=== PATIENT | male | born 1955 | race Caucasian/White ===

== ENCOUNTER 2017-07-11 11:30 | Emergency (ER) | payer SELFPAY ==
[2017-07-11] MEDS ORDERED: Labetalol IV* 5 MG/ML 20 ML VIAL IV PUSH ONE (12:44)
[2017-07-11 13:32] LABS: ABS Basophils 0.1 10^3/ul (0-0.2); ABS Eosinophils 0.1 10^3/ul (0-0.6); ABS Lymphocytes 1.1 10^3/ul (1.0-4.8); ABS Monocytes 0.8 10^3/ul (0-0.8); ABS Neutrophils 9.8 10^3/ul (1.5-7.7); ABS Nucleated RBC 0 10^3/ul; Eosinophil % 0.5 % (0-6); Hematocrit 43 % (42-52); Lymphocyte % 9.6 % (25-47); Mean Corpuscular HGB Conc 35 g/dl (31-36); Mean Corpuscular Hemoglobin 31 pg (27-31); Mean Corpuscular Volume 89 fL (80-94); Mean Platelet Volume 8 um3 (7.4-10.4); Nucleated Red Blood Cells % 0.1; Platelet Count 214 10^3/ul (150-450); Red Blood Count 4.85 10^6/ul (4.0-5.4); Red Cell Distribution Width 13 % (10.5-15)
--- NOTE | 2017-07-11 13:33 | RAD ---
Indication: Hypertension. 2 views of the chest including dual energy PA views demonstrate no mediastinal shift. Heart is normal size and configuration. Lung beauchamp are clear. IMPRESSION: No active cardiopulmonary disease is noted.
[2017-07-11 15:02] VITALS: BP 141/83
--- NOTE | 2017-07-13 07:47 | ED ---
Moncho [place] Angela, scribed for Bowen Casas MD on 07/11/17 at 1246 . Hypertension - HPI Summary HPI Summary: This pt is a 61 y/o male [facility] [place] [facility] [place]/o elevated blood pressure for the past 2 weeks. He reports his blood pressure in the last few weeks has been in the 200's/100's. Pt notes prior to onset of hypertension, he became upset and since then he has not been able to get his blood pressure down. He reports pressure on head, chest discomfort, and cold sweats. Denies SOB, nausea, vomiting. PMHx: diabetes, CVA (in 2000). Pt has had left leg swelling chronic since his stroke. Denies LLE pain. Pt reports he has problems with his kidneys "leaking" and is followed up Dr. Madison, veterinary practice manager in [place]. - History of Current Complaint Chief Complaint: EDHypertension Stated Complaint: HIGH BP Time Seen by Provider: 07/11/17 12:36 Hx Obtained From: Patient Onset/Duration: Started Weeks Ago Timing: Lasting Weeks Reported Blood Pressure Prior To Arrival: 200's/100's Aggravating Factor(s): Other: - stress Alleviating Factor(s): Nothing Associated Signs & Symptoms: Chest Pain - chest discomfort, Headaches - pressure on head, Other: - cold sweats - Allergies/Home Medications Allergies/Adverse Reactions: Allergies Allergy/AdvReac Type Severity Reaction Status Date / Time No Known Allergies Allergy Verified 07/11/17 13:00 PMH/Surg Hx/FS Hx/Imm Hx Endocrine/Hematology History: Reports: Hx Diabetes Neurological History: Reports: Hx CVA Infectious Disease History: No Infectious Disease History: Denies: Traveled Outside the [place] in Last 30 Days - Family History Known Family History: Negative: Cardiac Disease - Social History Alcohol Use: None Substance Use Type: Reports: None Smoking Status (MU): Never Smoked Tobacco Review of Systems Positive: Skin Diaphoresis - cold sweats. Negative: Fever, Chills Cardiovascular: Other - chest discomfort Negative: Shortness Of Breath Negative: Vomiting, Nausea Neurological: Other - pressure on head All Other Systems Reviewed And Are Negative: Yes Physical Exam - Summary Physical Exam Summary: VITAL SIGNS: Reviewed. GENERAL: Patient is a well-developed and nourished male who is lying comfortable in the stretcher. Patient is not in any acute respiratory distress. HEAD AND FACE: No signs of trauma. No ecchymosis, hematomas or skull depressions. No sinus tenderness. EYES: PERRLA, EOMI x 2, No injected conjunctiva, no nystagmus. EARS: Hearing grossly intact. Ear canals and tympanic membranes are within normal limits. MOUTH: Oropharynx within normal limits. NECK: Supple, trachea is midline, no adenopathy, no JVD, no carotid bruit, no c- spine tenderness, neck with full ROM. CHEST: Symmetric, no tenderness at palpation LUNGS: Clear to auscultation bilaterally. No wheezing or crackles. CVS: Regular rate and rhythm, S1 and S2 present, no murmurs or gallops appreciated. ABDOMEN: Soft, non-tender. No signs of distention. No rebound no guarding, and no masses palpated. Bowel sounds are normal. EXTREMITIES: FROM in all major joints, no edema, no cyanosis or clubbing. NEURO: Alert and oriented x 3. No acute neurological deficits. Speech is normal and follows commands. SKIN: Dry and warm Triage Information Reviewed: Yes Vital Signs On Initial Exam: Initial Vitals Temp Pulse Resp BP Pulse Ox 96.8 F 97 18 206/105 100 07/11/17 11:32 07/11/17 11:32 07/11/17 11:32 07/11/17 11:32 07/11/17 11:32 Vital Signs Reviewed: Yes Diagnostics - Vital Signs Vital Signs Temp Pulse Resp BP Pulse Ox 07/11/17 11:32 96.8 F 97 18 206/105 100 - Laboratory Lab Results: Lab Results 07/11/17 07/11/17 07/11/17 Range/Units 13:20 13:20 13:20 WBC 12.0 H (3.5-10.8) 10^3/ul RBC 4.85 (4.0-5.4) 10^6/ul Hgb 15.0 (14.0-18.0) g/dl Hct 43 (42-52) % MCV 89 (80-94) fL MCH 31 (27-31) pg MCHC 35 (31-36) g/dl RDW 13 (10.5-15) % Plt Count 214 (150-450) 10^3/ul MPV 8 (7.4-10.4) um3 Neut % (Auto) 81.9 (38-83) % Lymph % (Auto) 9.6 L (25-47) % Roosevelt % (Auto) 7.0 (0-7) % Eos % (Auto) 0.5 (0-6) % Baso % (Auto) 1.0 (0-2) % Absolute Neuts (auto) 9.8 H (1.5-7.7) 10^3/ul Absolute Lymphs (auto) 1.1 (1.0-4.8) 10^3/ul Absolute Monos (auto) 0.8 (0-0.8) 10^3/ul Absolute Eos (auto) 0.1 (0-0.6) 10^3/ul Absolute Basos (auto) 0.1 (0-0.2) 10^3/ul Absolute Nucleated RBC 0 10^3/ul Nucleated RBC % 0.1 Sodium 134 (133-145) mmol/L Potassium 4.3 (3.5-5.0) mmol/L Chloride 104 (101-111) mmol/L Carbon Dioxide 22 (22-32) mmol/L Anion Gap 8 (2-11) mmol/L BUN 24 (6-24) mg/dL Creatinine 1.21 H (0.67-1.17) mg/dL Est GFR ( Amer) 78.4 (>60) Est GFR (Non-Af Amer) 61.0 (>60) BUN/Creatinine Ratio 19.8 (8-20) Glucose 126 H (70-100) mg/dL Lactic Acid (0.5-2.0) mmol/L Calcium 9.5 (8.6-10.3) mg/dL Total Bilirubin 0.70 (0.2-1.0) mg/dL AST 18 (13-39) U/L ALT 16 (7-52) U/L Alkaline Phosphatase 73 (34-104) U/L Total Creatine Kinase 122 (10-223) U/L Troponin I 0.00 (<0.04) ng/mL B-Natriuretic Peptide 24 ( - 100) pg/mL Total Protein 7.6 (6.4-8.9) g/dL Albumin 4.2 (3.2-5.2) g/dL Globulin 3.4 (2-4) g/dL Albumin/Globulin Ratio 1.2 (1-3) TSH 1.83 (0.34-5.60) mcIU/mL 07/11/17 Range/Units 13:20 WBC (3.5-10.8) 10^3/ul RBC (4.0-5.4) 10^6/ul Hgb (14.0-18.0) g/dl Hct (42-52) % MCV (80-94) fL MCH (27-31) pg MCHC (31-36) g/dl RDW (10.5-15) % Plt Count (150-450) 10^3/ul MPV (7.4-10.4) um3 Neut % (Auto) (38-83) % Lymph % (Auto) (25-47) % Roosevelt % (Auto) (0-7) % Eos % (Auto) (0-6) % Baso % (Auto) (0-2) % Absolute Neuts (auto) (1.5-7.7) 10^3/ul Absolute Lymphs (auto) (1.0-4.8) 10^3/ul Absolute Monos (auto) (0-0.8) 10^3/ul Absolute Eos (auto) (0-0.6) 10^3/ul Absolute Basos (auto) (0-0.2) 10^3/ul Absolute Nucleated RBC 10^3/ul Nucleated RBC % Sodium (133-145) mmol/L Potassium (3.5-5.0) mmol/L Chloride (101-111) mmol/L Carbon Dioxide (22-32) mmol/L Anion Gap (2-11) mmol/L BUN (6-24) mg/dL Creatinine (0.67-1.17) mg/dL Est GFR ( Amer) (>60) Est GFR (Non-Af Amer) (>60) BUN/Creatinine Ratio (8-20) Glucose (70-100) mg/dL Lactic Acid 0.9 (0.5-2.0) mmol/L Calcium (8.6-10.3) mg/dL Total Bilirubin (0.2-1.0) mg/dL AST (13-39) U/L ALT (7-52) U/L Alkaline Phosphatase (34-104) U/L Total Creatine Kinase (10-223) U/L Troponin I (<0.04) ng/mL B-Natriuretic Peptide ( - 100) pg/mL Total Protein (6.4-8.9) g/dL Albumin (3.2-5.2) g/dL Globulin (2-4) g/dL Albumin/Globulin Ratio (1-3) TSH (0.34-5.60) mcIU/mL Result Diagrams: 07/11/17 13:20 07/11/17 13:20 Lab Statement: Any lab studies that have been ordered have been reviewed, and results considered in the medical decision making process. - Radiology Chest XR Xray Interpretation: No Acute Changes - IMPRESSION: No active cardiopulmonary disease is noted. Dr. Casas has reviewed this radiology report. Radiology Interpretation Completed By: Radiologist Re-Evaluation - Re-Evaluation First Eval Re-Evaluation Time: 14:20 Comment: I reviewed the lab and XR results with the pt. Pt will be discharged to home. Hypertension Course/Dx - Course Assessment/Plan: This pt is a 61 y/o male [facility] [place] [facility] [place]/o elevated blood pressure for the past 2 weeks. He reports his blood pressure in the last few weeks has been in the 200's/100's. Pt notes prior to onset of hypertension, he became upset and since then he has not been able to get his blood pressure down. He reports pressure on head, chest discomfort, and cold sweats. Denies SOB , nausea, vomiting. PMHx: diabetes, CVA (in 2000). Pt has had left leg swelling chronic since his stroke. Denies LLE pain. Pt reports he has problems with his kidneys "leaking" and is followed up Dr. Madison, veterinary practice manager in [place]. Test results without any significant abnormalities except for WBC of 12, glucose of 126. Chest XR is negative for an acute pathology. In the ED course the pt was given labetalol. Upon arriving to the ED pts blood pressure was 206/105 and after labetalol his blood pressure decreased to 132/76. Therefore the pt will be discharged to home with follow up from his PCP. He was given a prescription for Lisinopril. I discussed all the findings and test results with the patient. Patient was instructed to return to the emergency room immediately if any of the symptoms return or worsens. Plan of care was discussed with the patient and understands and agrees. All questions were answered at patient satisfaction. There were no further complaints or concerns. He is instructed to return to the ED for any worsening or new symptoms. Pt understands and agrees. Pt is hemodynamically stable, alert and oriented x3. - Diagnoses Differential Diagnosis/HQI PQRI: Hypertension, Hypertensive Crisis, Hypertensive Urgency Provider Diagnoses: Uncontrolled hypertension Discharge - Discharge Plan Condition: Stable Disposition: HOME Prescriptions: Lisinopril 5 mg PO DAILY #30 tablet Patient Education Materials: Hypertension (ED) Referrals: Jose Lion MD [Primary Care Provider] - 3 Days Additional Instructions: Please follow up with your primary care provider. RETURN TO THE ED FOR ANY WORSENING SYMPTOMS. The documentation as recorded by the [facility] [place] Angela accurately reflects the service I personally performed and the decisions made by , Bowen Casas MD.
== END 2017-07-11 15:01 | disposition home or self-care (01) ==
LOC: ED 11:30
DX: I10 Essential (primary) hypertension (principal); R07.9 Chest pain, unspecified; R51 Headache
CPT/HCPCS: 36415; 71046; 80053; 82550; 83605; 83880; 84443; 84484; 85025; 96374; 99282